=== PATIENT | male | born 1945 | race Caucasian/White ===

== ENCOUNTER 2017-09-14 07:42 | Day surgery (SDC) | payer MEDICARE, OTHER ==
[~2017-09-14] VITALS: Ht 190.5 cm; Wt 96.4 kg
[~2017-09-14 07:42] MED LIST: ANDROGEL162PKT TOP; BYSTOLIC5 MG PO; HALCION0.25 MG PO; HYZAAR 25 MG-101 TAB PO; LANTANOPROST OU; NORCO 325 MG-51 TAB PO; SINGULAIR 110 MG/TAB PO; THEO-DUR 3300 MG/TAB PO; XALATAN EYE DROPS OU; XANAX .25M0.25 MG/TA PO; ZOLOFT 50MG50 MG PO
[2017-09-14 08:57] VITALS: BP 131/88; PULSE 65; TEMP 98.1
[2017-09-14 13:00] VITALS: BP 135/60; PULSE 67
[2017-09-14 13:15] VITALS: BP 133/62; PULSE 61; TEMP 98.1
[2017-09-14] MEDS ORDERED: NORCO 325 MG-51 TAB PO (13:25)
[2017-09-14 13:30] VITALS: BP 139/63; PULSE 58
[2017-09-14 13:45] VITALS: BP 136/69; PULSE 65
== END 2017-09-14 14:30 | disposition home or self-care (01) ==
LOC: SDCO 07:42
DX: K40.91 Unilateral inguinal hernia, without obstruction or gangrene, recurrent (principal); I10 Essential (primary) hypertension; E78.5 Hyperlipidemia, unspecified; G89.29 Other chronic pain; F41.1 Generalized anxiety disorder; L57.0 Actinic keratosis; M19.90 Unspecified osteoarthritis, unspecified site; Z79.82 Long term (current) use of aspirin; Z79.52 Long term (current) use of systemic steroids; Z90.79 Acquired absence of other genital organ(s); Z80.42 Family history of malignant neoplasm of prostate; Z83.3 Family history of diabetes mellitus
CPT/HCPCS: A4314; C1781; J0690; J1100; J1885; J2370; J2405; J2704; J2710; J3010; J3301; J7120; Q9967

== ENCOUNTER → 2017-11-10 | Outpatient (CLI) | payer MEDICARE, OTHER | LOC: COL.RAD 11-09 09:00 | DX: M25.551 Pain in right hip (principal) | CPT/HCPCS: J3301; Q9967 ==

== ENCOUNTER → 2018-01-25 | Outpatient (CLI) | payer MEDICARE, OTHER | LOC: COL.RAD 08:26 | DX: M25.551 Pain in right hip (principal) | CPT/HCPCS: J3301; Q9967 ==

== ENCOUNTER 2018-07-17 12:39 | Inpatient (IN) | payer MEDICARE, OTHER ==
[~2018-07-17] VITALS: Ht 188.1 cm; Wt 95.9 kg
[2018-08-14] VITALS (10 sets, daily range): BP systolic 126–157; BP diastolic 55–76; PULSE 53–91; TEMP 97–98
--- NOTE | 2018-08-14 08:08 | NUR ---
pt admitted ambulatory to room 331. Pre op assessments complete, consent signed. Dr Hdz in to see pt and .
--- NOTE | 2018-08-14 08:58 | NUR ---
pt to surgery at this time per bed with
--- NOTE | 2018-08-14 12:21 | NUR ---
PT TO ROOM 331 PER BED WITH AB GIVING REPORT @ 1200. PT IS A/O X3, IV TO PUMP, AQUACEL DRESSING TO RIGHT HIP CDI. WILL PLACE ICE BAG TO RIGHT HIP. STONG PEDAL PULSES PALPABLE. SCDS AND TEDS BILATERALLY. PT DENIES PAIN
--- NOTE | 2018-08-14 13:17 | NUR ---
SW met with patient and family about discharge planning. Patient lives independenlty at home with his and plans to return there upon discharge. Patient's PCP is Nadia Campos and he obtains prescriptions from [facility] in [place]. Patient has a walker for ambulation and does not use any home health services. Patient reports he would like to return home and get outpatient PT but would like to know PT/OT recommendations before making his decision. MARIA ISABEL will follow up with patient after he is seen by PT and OT.
--- NOTE | 2018-08-14 15:57 | NUR ---
PT RESTING IN BED ICE BAG PLACED OVER DRESSING TO RIGHT HIP. PT CURRENTLY RATING PAIN AT 2/10.
--- NOTE | 2018-08-14 19:22 | NUR ---
REPORT TO SEFERINO VIERA.
--- NOTE | 2018-08-14 20:00 | NUR ---
Upon assessment patient is resting in bed. Reports pain at 6/10, PRN Claudia given at this time. Denies N/V. Aquacell to right hip CDI. Patient up with assist for first time since surgery, tolerated well, walked in bauer with walker and standby. Patient able to get back to bed without assist. SCDs and TEDs in place. No other needs at this time.
[2018-08-15 01:02] VITALS: BP 141/51; PULSE 88; TEMP 97.8
[2018-08-15 05:40] VITALS: BP 142/66; PULSE 81; TEMP 97.8
[2018-08-15 06:47] LABS: HEMATOCRIT 37.2 % (42.0-52.0); HEMOGLOBIN 12.6 g/dl (13.5-18.0)
--- NOTE | 2018-08-15 07:40 | NUR ---
Patient report given to MAXIMILIANO Handley at bedside. No needs reported at this time.
--- NOTE | 2018-08-15 10:53 | NUR ---
PT INDEPENDENT IN ROOM AND BUI, MINIMAL PAIN, STEADY GAIT, PT WANT TO DISCHARGE TODAY THERAPY IN AGREEMENT. AQUACEL TO RIGHT HIP CDI NO DRAINAGE NOTED.
--- NOTE | 2018-08-15 11:53 | NUR ---
First visit from the personal health coach. No needs right now.
[2018-08-15] MEDS ORDERED: ASPI325T6 PO (13:13)
[2018-08-15 14:11] VITALS: BP 105/80; PULSE 64; TEMP 98.1
--- NOTE | 2018-08-15 14:39 | NUR ---
DISCHARGE ORDERS RECIEVED FROM [facility]. PT VERBLIZED UNDERSTANDING. PT TAKEN OUT TO FRONT
== END 2018-08-15 14:15 | disposition home or self-care (01) | DRG 470 ==
LOC: JCC 08-14 06:59
PROVIDERS: ADMIT Orthopaedic Surgery Sports Medicine
PROC: 0SR90JA Replacement of Right Hip Joint with Synthetic Substitute, Uncemented, Open Approach (ICD-10-PCS; principal; 2018-08-14 09:30)
DX: M16.11 Unilateral primary osteoarthritis, right hip (principal); Z85.46 Personal history of malignant neoplasm of prostate; I10 Essential (primary) hypertension; Z85.820 Personal history of malignant melanoma of skin
CPT/HCPCS: A9284; C1776; J0690; J1100; J1885; J2250; J2405; J2704; J3010; J7120

== ENCOUNTER → 2018-08-07 | Outpatient (CLI) | payer MEDICARE, OTHER | LOC: COL.LAB 10:52 | DX: Z01.812 Encounter for preprocedural laboratory examination (principal) ==